=== PATIENT | female | born 1990 | race Hispanic/Latino ===

== ENCOUNTER → 2023-11-03 11:36 | Outpatient (REF) | payer OTHER, SELFPAY | LOC: RAD 11:36 | PROVIDERS: ATTENDING PHYSICIAN Obstetrics & Gynecology; FAMILY PHYSICIAN Family Medicine | DX: O26.859 Spotting complicating pregnancy, unspecified trimester (principal) | CPT/HCPCS: 76801; 76817 ==

== ENCOUNTER → 2023-12-04 14:44 | Outpatient (REF) | payer OTHER, SELFPAY | LOC: PNTC 14:44 | PROVIDERS: ATTENDING PHYSICIAN Obstetrics & Gynecology | DX: Z36.0 Encounter for antenatal screening for chromosomal anomalies (principal); Z36.82 Encounter for antenatal screening for nuchal translucency | CPT/HCPCS: 36415; 76801; 76813 ==

== ENCOUNTER → 2023-12-29 06:52 | Outpatient (REF) | payer OTHER, SELFPAY | LOC: PNTC 06:52 | PROVIDERS: ATTENDING PHYSICIAN Obstetrics & Gynecology | DX: O34.211 Maternal care for low transverse scar from previous cesarean delivery (principal); O34.219 Maternal care for unspecified type scar from previous cesarean delivery; Z34.82 Encounter for supervision of other normal pregnancy, second trimester | CPT/HCPCS: 76805; 93976 ==

== ENCOUNTER → 2024-01-22 14:25 | Outpatient (REF) | payer OTHER, SELFPAY | LOC: PNTC 14:25 | PROVIDERS: ATTENDING PHYSICIAN Obstetrics & Gynecology | DX: O34.219 Maternal care for unspecified type scar from previous cesarean delivery (principal) | CPT/HCPCS: 76811; 93976 ==

== ENCOUNTER → 2024-02-17 13:46 | Outpatient (REF) | payer OTHER, SELFPAY | LOC: PNTC 13:46 | PROVIDERS: ATTENDING PHYSICIAN Obstetrics & Gynecology | DX: O34.219 Maternal care for unspecified type scar from previous cesarean delivery (principal) | CPT/HCPCS: 76816; 93976 ==

== ENCOUNTER → 2024-03-16 14:41 | Outpatient (REF) | payer OTHER, SELFPAY | LOC: PNTC 14:41 | PROVIDERS: ATTENDING PHYSICIAN Obstetrics & Gynecology | DX: O34.10 Maternal care for benign tumor of corpus uteri, unspecified trimester (principal) | CPT/HCPCS: 76816; 93976 ==

== ENCOUNTER → 2024-04-15 06:50 | Outpatient (REF) | payer OTHER, SELFPAY | LOC: PNTC 06:50 | PROVIDERS: ATTENDING PHYSICIAN Obstetrics & Gynecology | DX: O34.219 Maternal care for unspecified type scar from previous cesarean delivery (principal) | CPT/HCPCS: 76816; 93976 ==

== ENCOUNTER → 2024-05-10 15:22 | Outpatient (REF) | payer OTHER, SELFPAY | LOC: PNTC 15:22 | PROVIDERS: ATTENDING PHYSICIAN Obstetrics & Gynecology | DX: O34.219 Maternal care for unspecified type scar from previous cesarean delivery (principal) | CPT/HCPCS: 76816; 93976 ==

== ENCOUNTER 2024-05-21 05:25 | Inpatient (IN) | payer OTHER, SELFPAY ==
[2024-05-21 05:43] VITALS: BP 117/73; BMI 33.5
[2024-05-21] MEDS: LR 1000 IV ×2 (05:50→11:21)
[2024-05-21 06:04] LABS: Hematocrit 33.4 % (37.0-47.0); Hemoglobin 11.5 g/dL (12.0-16.0); Mean Corp Hgb Conc. 34.4 g/dL (33.0-37.0); Mean Corpuscular Hgb 28.9 pg (27.0-31.0); Mean Corpuscular Volume 83.9 fL (81.0-99.0); Platelet Count 213 10^3/uL (130-400); Red Blood Cell Count 3.98 10^6/uL (4.20-5.40); Red Cell Dist. Width 12.8 % (11.5-14.5); White Blood Cell Count 9.8 10^3/uL (4.8-10.8)
[2024-05-21] MEDS: TYLENOL 1000 MG PO (07:10)
[2024-05-21] MEDS: BICITRA 30 ML PO (07:10)
[2024-05-21] MEDS: ANCEF 10 IV (07:11)
[2024-05-21] MEDS: PITOCIN 30 UNITS/NSS 500 ML IV (11:21)
[2024-05-21] MEDS: TORADOL 15 MG IV ×2 (13:56→20:22)
[2024-05-21] MEDS: TYLENOL 650 MG PO (20:22)
[2024-05-21] MEDS: FEOSOL 325 MG PO (20:22)
[2024-05-22] MEDS: TORADOL 15 MG IV ×2 (02:04→08:02)
[2024-05-22 04:22] LABS: Hematocrit 27.2 % (37.0-47.0); Hemoglobin 9.4 g/dL (12.0-16.0); Mean Corp Hgb Conc. 34.6 g/dL (33.0-37.0); Mean Corpuscular Hgb 29.2 pg (27.0-31.0); Mean Corpuscular Volume 84.5 fL (81.0-99.0); Mean Platelet Volume 11.4 fL (7.4-10.4); Platelet Count 188 10^3/uL (130-400); Red Blood Cell Count 3.22 10^6/uL (4.20-5.40); Red Cell Dist. Width 12.8 % (11.5-14.5); White Blood Cell Count 10.5 10^3/uL (4.8-10.8)
[2024-05-22] MEDS: TYLENOL 650 MG PO ×3 (06:38→20:33)
[2024-05-22] MEDS: FEOSOL 325 MG PO (08:02)
[2024-05-22] MEDS: SENOKOT-S 1 TABLET PO (08:02)
[2024-05-22] MEDS: PRENATAL PLUS 1 TABLET PO (08:02)
[2024-05-22] MEDS: MOTRIN 600 MG PO ×2 (15:30→21:32)
[2024-05-23] MEDS: MOTRIN 600 MG PO (04:33)
[2024-05-23] MEDS: TYLENOL 650 MG PO (04:34)
[2024-05-23] MEDS: PRENATAL PLUS 1 TABLET PO (09:09)
[2024-05-23] MEDS: FEOSOL 325 MG PO (09:09)
[2024-05-23] MEDS: SENOKOT-S 1 TABLET PO (09:09)
--- NOTE | 2024-05-23 10:06 | W.DS.TRANS ---
DC Summary - [employer]
-
Discharge Instructions:
Discharge Diagnosis/Procedures delivered via repeat ,
bilateral salpingectomy, history of T-incision
Diet No restrictions
Activity No restrictions
Driving Restrictions No driving for 2 weeks
Bathing Restrictions OK to Shower
Instructions:
Stand-Alone Forms: [facility] Delivery
Changes to Home Medications: No
Discharge Medications:
DC Medications w/original date entered in [facility]
1 tab PO DAILY Supplement 05/21/24
acetaminophen 325 mg tablet 650 mg (2 x 325 mg) PO Q4HPRN PRN mild pain #1 tab 05/23/24
ferrous sulfate 325 mg (65 mg iron) tablet (FeroSul) 325 mg PO DAILY #1 tab 05/23/24
ibuprofen 600 mg tablet 600 mg PO Q6HPRN PRN cramps #60 tabs 05/23/24
Home Medication Changes
Pending Results: No
--- NOTE | 2024-05-23 10:06 | W.DCSUMMARY ---
Discharge Summary
Discharge Data
Date of Admission: 05/21/24
Date of Discharge: 05/23/24
-
Pending Results: No
Hospital Course
Patient is a 33yo who presented to Labor and Delivery on 05/21 for scheduled repeat section at 37wks. She has a history of one prior section with a T-incision. She had also completed her family status and desired permanent
sterilization. She underwent a repeat low transverse section delivering a viable female . The procedure was uncomplicated. The estimated blood loss was 900. On postoperative day one, her hemoglobin was 9.4. She was asymptomatic for
anemia and was started on iron supplementation. Her pain was well controlled. On postoperative day number two, she was meeting all postoperative milestones. She was tolerating a regular diet, ambulating, voiding spontaneously and had a bowel
movement. She desired discharge home. She was stable for discharge home. Discharge instructions and return precautions discussed and all questions were answered prior to discharge. She was instructed to follow up in two weeks for an incision check.
A script for Motrin was sent to her pharmacy.
Discharge Plan
-
Patient Disposition: Home (Routine Discharge)
Discharge Diagnosis/Procedures: delivered via repeat , bilateral salpingectomy, history of T-incision
Condition: Good
Diet: No restrictions
Activity: No restrictions
Driving Restrictions: No driving for 2 weeks
Bathing Restrictions: OK to Shower
Stand Alone Forms: [facility] Delivery
Referrals:
Kera Healy MD [Active] - in two weeks
UNKNOWN - PT NOT,INTERVIEWE [Family Provider] -
Prescriptions:
New
acetaminophen 325 mg Tablet
650 mg PO Q4HPRN PRN (Reason: mild pain) Qty: 1 0RF
ferrous sulfate [FeroSul] 325 mg (65 mg iron) Tablet
325 mg PO DAILY Qty: 1 0RF
ibuprofen 600 mg Tablet
600 mg PO Q6HPRN PRN (Reason: cramps) Qty: 60 0RF
Continued
1 tab PO DAILY
Discharge Orders:
Discharge Patient (As Directed); Ordered 05/23/24
Ordered By: Ifeoma Campa
Discharge Date and Time
Print Language: PARAGUAYAN
[2024-05-25 15:16] LABS: Syphilis/T. pallidum Ab Reflex Negative (Negative)
== END 2024-05-23 10:18 | disposition home or self-care (01) | DRG 785 ==
LOC: LDRP 05:25
PROVIDERS: Obstetrics & Gynecology; ADMITTING PHYSICIAN Obstetrics & Gynecology
PROC: 0UT70ZZ Resection of Bilateral Fallopian Tubes, Open Approach (ICD-10-PCS; 2024-05-21)
PROC: 10D00Z1 Extraction of Products of Conception, Low, Open Approach (ICD-10-PCS; 2024-05-21)
DX: O34.212 Maternal care for vertical scar from previous cesarean delivery (principal); Z3A.37 37 weeks gestation of pregnancy; Z37.0 Single live birth; O69.81X0 Labor and delivery complicated by cord around neck, without compression, not applicable or unspecified; Z30.2 Encounter for sterilization
CPT/HCPCS: 88302; 88307; 36415; 58605; 85027; 86780; 86850; 86900; 86901